=== PATIENT | male | born 1960 | race Caucasian/White ===

== ENCOUNTER 2024-12-11 07:22 | Outpatient (CLI) | payer BC, SELFPAY ==
--- NOTE | ~2024-12-11 | US_ITS ---
EXAMINATION: US arterial duplex [facility] DATE: 12/11/2024 07:59 INDICATION: Left knee pain TECHNIQUE: Multiple grayscale and Doppler ultrasound images of the posterior left knee were obtained. COMPARISON: None FINDINGS: The left popliteal artery is minimally aneurysmal measuring up to 1.1 cm in maximal diameter with nor mal triphasic waveform with brisk systolic upstroke. The adjacent popliteal vein is patent and compre ssible. No Holguin's cyst or other abnormal masses or fluid collections identified. IMPRESSION: 1. 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 Reviewed, dictated and finalized at location A.
== END 2024-12-11 07:23 | disposition home or self-care (01) ==
PROVIDERS: PCP Family Medicine; Visit Provider Orthopaedic Surgery
DX: I72.8 Aneurysm of other specified arteries (principal)
CPT/HCPCS: 93926

== ENCOUNTER 2025-02-05 09:24 | Outpatient (CLI) | payer BC, SELFPAY ==
--- NOTE | ~2025-02-05 | MR_ITS ---
EXAMINATION: MR knee LT wo con DATE: 02/05/2025 09:53 INDICATION: Left knee pain TECHNIQUE: Magnetic resonance imaging (MRI) of the left knee was performed without intravenous contrast. Sequences included coronal PD-weighted FSE, coronal PD-weighted FS FSE, sagittal T2-weighted FSE, sagittal PD-weighted FS FSE and axial PD weighted fat saturated FSE. COMPARISON: None. FINDINGS: Medial compartment: Longitudinal horizontal tear of the posterior horn of the medial meniscus. . Partial-thickness chondral fissuring involving less than 50% the cartilage thickness along the lateral aspect of the anterior to central weightbearing medial femoral condyle. Less severe mild chondral surface regularity along the anterior and posterior weightbearing medial femoral condyle. Lateral compartment: Longitudinal horizontal tear extending to near the free edge at the anterior body of the lateral meniscus transition to the intra-articular surface and the more posterior body. There is an additional separate complex tear extending to the free edge and inferior articular surface at the medial side of the posterior horn. Partial-thickness chondral fissure at the posterior aspect of the lateral tibial plateau. Patellofemoral compartment: Deep chondral ulceration with small focus of subarticular edema-like signal change at the medial patellar facet. Mild partial-thickness chondral fissuring along the patellar apical ridge and medial side of the lateral patellar facet. Additional partial-thickness chondral ulceration without degenerative subchondral changes at the trochlear groove and immediately adjacent portion of the medial and lateral trochlea. Ligaments and tendons: Posterior cruciate ligament is normal. There is a tear of the posterior lateral bundle of the anterior cruciate ligament. The anteromedial bundle remains intact. The medial collateral ligament and fibular collateral ligament complex are normal. Mild distal quadriceps tendinopathy. Patellar tendon is normal. The visualized medial and lateral hamstring tendons as well as the iliotibial band are normal. Fluid: Physiologic amount of fluid in the joint space. No loose osteochondral bodies identified. Osseous/other: Normal marrow signal. No fracture or pathologic marrow replacing process. There is edema in the superficial suprapatellar fat pad which can be seen with fat pad impingement syndrome. IMPRESSION: 1. Tear of the posterior lateral bundle of the anterior cruciate ligament with intact anteromedial bundle. 2. Medial and lateral meniscal tears. 3. 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 4. Edema at the superficial suprapatellar fat pad consistent with fat pad. Reviewed, dictated and finalized at location A. IMPRESSION: 1. Tear of the posterior lateral bundle of the anterior cruciate ligament with intact anteromedial bundle. 2. Medial and lateral meniscal tears. 3. 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 4. Edema at the superficial suprapatellar fat pad consistent with fat pad.
== END 2025-02-05 09:25 | disposition home or self-care (01) ==
PROVIDERS: PCP Family Medicine; Visit Provider Orthopaedic Surgery
DX: S83.512A Sprain of anterior cruciate ligament of left knee, initial encounter (principal); S83.282A Other tear of lateral meniscus, current injury, left knee, initial encounter; S83.242A Other tear of medial meniscus, current injury, left knee, initial encounter; X58.XXXA Exposure to other specified factors, initial encounter; M17.12 Unilateral primary osteoarthritis, left knee; M94.262 Chondromalacia, left knee
CPT/HCPCS: 73721